=== PATIENT | female | born 1980 | race Hispanic/Latino ===

== ENCOUNTER 2021-02-06 13:30 | Emergency (ER) | payer MEDICARE ==
[~2021-02-06] VITALS: Ht 152.4 cm; Wt 78.0 kg
[2021-02-06 14:31] LABS: BASOPHILS % 0.3 % (0.0-1.0); EOSINOPHILS # (AUTO) 0.1 (0.0-0.4); HEMATOCRIT 41.3 % (34.2-44.1); HEMOGLOBIN 13.8 g/dL (12.0-16.0); LYMPHOCYTES # (AUTO) 2.3 (1.0-3.2); LYMPHOCYTES % 27.2 % (18.0-39.1); MEAN CORPUSCULAR HGB CONC 33.4 g/dL (31-35); MEAN CORPUSCULAR VOLUME 86.8 fL (81-99); MONOCYTES # (AUTO) 0.5 (0.2-0.8); MONOCYTES % 5.7 % (4.4-11.3); NEUTROPHILS # (AUTO) 5.6 (2.1-6.9); NEUTROPHILS % 65.5 % (38.7-80.0); PLATELET COUNT 273 x10e3/uL (140-360); RED BLOOD COUNT 4.76 x10e6/uL (3.6-5.1); RED CELL DISTRIBUTION WIDTH 13.5 % (11.7-14.4)
== END 2021-02-06 18:48 | disposition home or self-care (01) ==
LOC: ER 14:22
DX: O03.9 Complete or unspecified spontaneous abortion without complication (principal)
CPT/HCPCS: 36415; 76817; 84702; 85025; 86900; 99284

== ENCOUNTER 2022-05-06 05:53 | Emergency (ER) | payer OTHER ==
[~2022-05-06] VITALS: Ht 152.4 cm; Wt 78.0 kg
[2022-05-06] MEDS ORDERED: KETOROLAC TROMETHAMINE 60 MG/2 ML VIAL IM ONE (06:30)
== END 2022-05-06 06:40 | disposition home or self-care (01) ==
LOC: ER 06:19
DX: M54.12 Radiculopathy, cervical region (principal)
CPT/HCPCS: 99282; J1885